=== PATIENT | male | born 1990 | race Caucasian/White ===

== ENCOUNTER 2020-06-12 11:15 | Emergency (ER) | payer OTHER, SELFPAY ==
--- NOTE | ~2020-06-12 | XR_ITS ---
EXAMINATION: XR finger 1st LT min 2V INDICATION: Left first finger laceration and pain TECHNIQUE: Four views of the left first finger are obtained. COMPARISON: None available FINDINGS: There is a laceration through the nail of the first finger. The underlying tuft of the firs t distal phalanx appears normal. There is mild soft tissue swelling. Partially imaged internal stabil ization hardware is noted in the distal radius. IMPRESSION: 1. No acute osseous abnormality. Reviewed, dictated and finalized at location A.
[2020-06-12 11:27] VITALS: BP 133/81; PULSE 84; RESP 18; TEMP 37.3; O2SAT 98
[2020-06-12 11:32] VITALS: BP 133/81; PULSE 84; RESP 18; TEMP 37.3; O2SAT 98
[2020-06-12] MEDS: LIDOCAINE HCL 1% LOCAL INJ 20 ML VIAL (12:06)
--- NOTE | 2020-06-12 13:36 | ED.GENADULT ---
HPI - General Adult General Chief complaint: Wound/Laceration <Ezequiel Velez PA-C - Last Filed: 06/12/20 13:39> Stated complaint: L thumb lac <Ezequiel Velez PA-C - Last Filed: 06/12/20 13:39> Time Seen by Provider: 06/12/20 11:35 <Ezequiel Velez PA-C - Last Filed: 06/12/20 13:39> History of Present Illness HPI narrative: Patient is a 29-year-old male who presents with left thumb laceration occurred just prior to arrival while using a circular saw patient notes aching pain of the thumb worse with touch and activity notes his tetanus is up-to-date patient denies any other complaints or questions at this time <Ezequiel Velez PA-C - Last Filed: 06/12/20 13:39> Related Data Home medications: Home Medications Medication Instructions Recorded Confirmed lamotrigine BID 06/12/20 <Ezequiel Velez PA-C - Last Filed: 06/12/20 13:39> Allergies/adverse reactions: Allergies Allergy/AdvReac Type Severity Reaction Status Date / Time Cat Dander Allergy Unknown Itching Uncoded 06/12/20 11:26 DUST Allergy Unknown Itching Uncoded 06/12/20 11:26 DUST MITES Allergy Unknown Itching Uncoded 06/12/20 11:26 GRASS Allergy Unknown Itching Uncoded 06/12/20 11:26 <Ezequiel Velez PA-C - Last Filed: 06/12/20 13:39> Review of Systems Review of Systems: All systems reviewed & are unremarkable except as noted in HPI and below <Ezequiel Velez PA-C - Last Filed: 06/12/20 13:39> [facility] Family History Family History: Family History (Updated 04/11/13 @ 14:13 by DOCTOR UNKNOWN) Other Hypertension <Ezequiel Velez PA-C - Last Filed: 06/12/20 13:39> Social History Social History: Social History Smoking status: Never smoker Alcohol intake: current Gender identity (if verbalized by the patient): Male Sexual Orientation (if Verbalized by the Patient): Straight or Heterosexual <Ezequiel Velez PA-C - Last Filed: 06/12/20 13:39> Exam Narrative: Exam Narrative: GENERAL: Well-appearing, well-nourished, and in no acute distress. HEAD: Normocephalic, atraumatic. EYES: PERRLA and EOMI. ENT: Nares clear, no rhinorrhea or epistaxis. Mucous membranes moist. EXTREMITIES: Normal range of motion. No edema. 1 cm laceration of the left thumb involving the lateral thumb and nail bed SKIN: Warm, dry, no rash. NEURO: No focal deficits. Alert and oriented x3. Neurovascularly intact PSYCH: Normal mood and affect. <Ezequiel Velez PA-C - Last Filed: 06/12/20 13:39> Course Course Emergency Course: Patient in the room aware of case findings treatment plan and diagnosis agreeing to follow-up as directed or to return if symptoms worsen or concerns <Ezequiel Velez PA-C - Last Filed: 06/12/20 13:39> Vital Signs Vital signs: Vital Signs Temperature 99.2 F 06/12/20 11:27 Pulse Rate 84 06/12/20 11:27 Respiratory Rate 18 06/12/20 11:27 Blood Pressure 133/81 06/12/20 11:27 Pulse Oximetry 98 06/12/20 11:27 Temperature 98 F 06/12/20 13:45 Pulse Rate 69 06/12/20 13:45 Respiratory Rate 16 06/12/20 13:45 Blood Pressure 140/88 06/12/20 13:45 Pulse Oximetry 99 06/12/20 13:45 <Ezequiel Velez PA-C - Last Filed: 06/12/20 13:39> Vital Signs Temperature 99.2 F 06/12/20 11:27 Pulse Rate 84 06/12/20 11:27 Respiratory Rate 18 06/12/20 11:27 Blood Pressure 133/81 06/12/20 11:27 Pulse Oximetry 98 06/12/20 11:27 Temperature 98 F 06/12/20 13:45 Pulse Rate 69 06/12/20 13:45 Respiratory Rate 16 06/12/20 13:45 Blood Pressure 140/88 06/12/20 13:45 Pulse Oximetry 99 06/12/20 13:45 <Catherine Fisher MD - Last Filed: 06/12/20 14:49> Procedures Laceration Laceration 1: Date: 06/12/20 <Ezequiel Velez PA-C - Last Filed: 06/12/20 13:39> Time: 13:38 <DORIS Redmond Last Filed: 06/12/20 13:39> Site:
[2020-06-12 13:45] VITALS: BP 140/88; PULSE 69; RESP 16; TEMP 36.6; O2SAT 99
== END 2020-06-12 13:47 | disposition home or self-care (01) ==
PROVIDERS: Emergency Provider Emergency Medicine; PCP Family Medicine Adolescent Medicine
DX: S61.012A Laceration without foreign body of left thumb without damage to nail, initial encounter (principal); W31.2XXA Contact with powered woodworking and forming machines, initial encounter
CPT/HCPCS: 12001; 73140; 99283; A9270

== ENCOUNTER 2024-01-19 21:34 | Emergency (ER) | payer OTHER, SELFPAY ==
[2024-01-19 21:39] VITALS: BP 130/79; PULSE 81; RESP 16; TEMP 36.4; O2SAT 97
[2024-01-19] MEDS: TRANEXAMIC ACID 1,000 MG/10 ML AMPUL 1000 MG TOPICAL (22:22)
[2024-01-19] MEDS: KETOROLAC (*BKC) 60 MG/2 ML VIAL IM (23:06)
--- NOTE | 2024-01-19 23:35 | ED.DENTAL ---
HPI - Dental/Oral General Chief complaint: Dental/Oral Stated complaint: bleeding tooth after wisdom tooth removed Time Seen by Provider: 01/19/24 22:14 Source: patient Mode of arrival: ambulatory Limitations: no limitations History of Present Illness HPI Narrative: Patient is a 33 y/o male Who presents the ED with report of bleeding from his dental extraction sites. Patient reports he had 2 wisdom teeth and his right lower 1st molar removed this evening as an outpatient Dental Clinic in [place], [place]. He has had persistent bleeding since the procedure and was referred to the ED for further evaluation. C/o COTTON and pain along his gums. Denies vomiting, dizziness, lightheadedness, trismus, fevers, shortness of breath. Patient has not taken anything for pain. Teeth map: 1. dental extraction 2. dental extraction Related Data Home Medications Medication Instructions Recorded Confirmed lamotrigine 150 mg tablet BID 06/12/20 Allergies Allergy/AdvReac Type Severity Reaction Status Date / Time Cat Dander Allergy Unknown Itching Uncoded 01/19/24 22:10 DUST Allergy Unknown Itching Uncoded 01/19/24 22:10 DUST MITES Allergy Unknown Itching Uncoded 01/19/24 22:10 GRASS Allergy Unknown Itching Uncoded 01/19/24 22:10 Review of Systems Review of Systems: CONSTITUTIONAL: Denies fever, chills, or sweats. ENT: see HPI CARDIOVASCULAR: Denies chest pain. RESPIRATORY: Denies dyspnea. GASTROINTESTINAL: Denies abdominal pain, nausea, vomiting NEUROLOGIC: See HPI All systems reviewed & are unremarkable except as noted in HPI and below PMFSH Family History Family History Other Hypertension Social History Social History Smoking status: Never smoker Alcohol intake: current Gender identity (if verbalized by the patient): Male Sexual Orientation (if Verbalized by the Patient): Straight or Heterosexual Exam Narrative: GENERAL: Well appearing, thin, non-toxic, in no acute distress. HEAD: Normocephalic, atraumatic. ENT: Diffuse dental decay, scattered dental caries. Dental extraction sites to teeth # 32-[address], minimal bleeding/oozing. No evidence of hemorrhage. Dental extraction site to tooth #1, no significant active bleeding. No trismus. MMs moist. No stridor. RESPIRATORY: Airway patent, respirations nonlabored. CARDIOVASCULAR: Regular rate and rhythm MUSCULOSKELETAL: Moves all extremities. No gross deformities. SKIN: Warm, dry, normal color. NEURO: A&O X3. Speech clear. PSYCHIATRIC: Appropriate mood and affect. Normal interaction. Course Vital Signs Vital signs: Vital Signs Temperature 97.5 F L 01/19/24 21:39 Pulse Rate 81 01/19/24 21:39 Respiratory Rate 16 01/19/24 21:39 Blood Pressure 130/79 01/19/24 21:39 Pulse Oximetry 97 01/19/24 21:39 Oxygen Delivery Room Air 01/19/24 21:39 Temperature 97.5 F L 01/19/24 21:39 Pulse Rate 68 01/19/24 23:43 Respiratory Rate 16 01/19/24 23:43 Blood Pressure 126/86 01/19/24 23:43 Pulse Oximetry 98 01/19/24 23:43 Oxygen Delivery Room Air 01/19/24 21:39 MDM - Dental/Oral MDM Narrative Medical decision making narrative: Patient presented to ED with bleeding from dental extraction sites, several teeth extracted today. Vitals are stable upon arrival. No evidence of airway compromise, no respiratory distress, stridor, trismus. Patient has been holding gauze over dental extraction sites. Upon my evaluation, there is minimal bleeding, some oozing noted from lower sites. Gauze was packed in TXA and patient re-held pressure. On further evaluation, no significant active bleeding. He will be discharged. Advised close follow-up with dentist for further evaluation. Recommended Tylenol or ibuprofen as needed for pain. Given return precautions. Medical Records Attestation: I reviewed
[2024-01-19 23:43] VITALS: BP 126/86; PULSE 68; RESP 16; O2SAT 98
== END 2024-01-19 23:45 | disposition home or self-care (01) ==
PROVIDERS: Emergency Provider Physician Assistant; PCP Family Medicine Adolescent Medicine
DX: K91.840 Postprocedural hemorrhage of a digestive system organ or structure following a digestive system procedure (principal)
CPT/HCPCS: 96372; 99283; J1885

== ENCOUNTER 2024-01-27 19:57 | Emergency (ER) | payer OTHER, SELFPAY ==
[2024-01-27 20:20] VITALS: BP 109/67; PULSE 95; RESP 14; TEMP 36.9; O2SAT 96
--- NOTE | 2024-01-27 22:06 | PC.NURSE ---
patient to desk and states he is no longer having the pain. advised to come back if pain gets worse.
== END 2024-01-27 22:19 | disposition left against medical advice (07) ==
LOC: ANHED 22:10
PROVIDERS: PCP Family Medicine Adolescent Medicine
DX: K08.89 Other specified disorders of teeth and supporting structures (principal)
CPT/HCPCS: 99199